=== PATIENT | male | born 1970 | race Caucasian/White ===

== ENCOUNTER 2025-03-30 15:22 | Outpatient (CLI) | payer OTHER | END 2025-03-30 15:23 | disposition home or self-care (01) | LOC: CSHCT 15:22 | PROVIDERS: ATTEND Internal Medicine Cardiovascular Disease | DX: Z13.6 Encounter for screening for cardiovascular disorders (principal); I25.10 Atherosclerotic heart disease of native coronary artery without angina pectoris; I25.84 Coronary atherosclerosis due to calcified coronary lesion | CPT/HCPCS: 75571 ==